=== PATIENT | female | born 1990 | race Caucasian/White ===

== ENCOUNTER 2022-01-20 10:20 | Outpatient (CLI) | payer OTHER, SELFPAY ==
--- NOTE | 2022-01-20 10:43 | ECG_ITS ---
Measurements Intervals [place] Rate: 79 P: 58 HI: 121 QRS: 73 QRSD: 81 T: 33 QT: 343 QTc: 395 Interpretive Statements SINUS RHYTHM NONSPECIFIC T-WAVE ABNORMALITY NO PREVIOUS ECG AVAILABLE FOR COMPARISON Electronically Signed On 01-20-2022 12:46:17 CDT by Susi Heller M.D.
== END 2022-01-20 10:21 | disposition home or self-care (01) ==
LOC: ANHCARD 10:27
PROVIDERS: PCP Internal Medicine Infectious Disease; Visit Provider Obstetrics & Gynecology
DX: R00.2 Palpitations (principal); R94.31 Abnormal electrocardiogram [ECG] [EKG]
CPT/HCPCS: 93005

== ENCOUNTER 2022-03-19 12:59 | Outpatient (CLI) | payer OTHER, SELFPAY ==
[2022-03-19 13:35] VITALS: BP 127/74; PULSE 97
== END 2022-03-19 13:35 | disposition home or self-care (01) ==
LOC: ANHOBOP 13:34 → ANHLDR 13:35
PROVIDERS: PCP Internal Medicine Infectious Disease; Visit Provider Obstetrics & Gynecology
DX: O42.90 Premature rupture of membranes, unspecified as to length of time between rupture and onset of labor, unspecified weeks of gestation (principal); Z3A.00 Weeks of gestation of pregnancy not specified
CPT/HCPCS: 59025; 84112; 99199

== ENCOUNTER 2022-03-26 06:03 | Inpatient (IN) | payer OTHER, SELFPAY ==
[2022-03-26] VITALS (92 sets, daily range): BP systolic 89–151; BP diastolic 40–114; PULSE 30–159; RESP 14–18; TEMP 36.2–37.1; O2SAT 78–100; BMI 30.2
[2022-03-26] MEDS: LACTATED RINGERS 1,000 ML 125 ML IV CONT ×2 (06:45→11:11)
[2022-03-26] MEDS: ceFAZolin 2 GM/D5W 50 ML 2 GM/50 ML BAG IVPB (06:46)
[2022-03-26 06:54] LABS: Basophils Percent Auto 0.2 % (0.2-1.2); Eosinophils Absolute Auto 0.1 K/mm3 (0-0.3); Eosinophils Percent Auto 0.6 % (0-4.4); Immature Granulocyte Absolute 0.09 K/mm3 (0.00-0.031); Immature Granulocyte Percent A 0.9 % (0-0.5); Lymphocytes Absolute Auto 1.28 K/mm3 (0.9-3.2); Lymphocytes Percent Auto 13.4 % (18.3-44.2); Mean Corpuscular HGB Conc 32.4 g/dl (32-36); Mean Corpuscular Hemoglobin 30.7 pg (26-34); Mean Platelet Volume 9.3 fl (7.4-10.4); Monocytes Absolute Auto 0.6 K/mm3 (0.1-0.6); Monocytes Percent Auto 6.4 % (2.6-8.5); Neutrophils Absolute Auto 7.5 K/mm3 (1.3-6.7); Neutrophils Percent Auto 78.5 % (45.5-73.1); Platelet Count Result 123 k/mm3 (150-375); Red Blood Count 3.58 M/mm3 (4.2-5.4); Red Cell Distribution Width 15.1 % (11.5-14.5); White Blood Count 9.6 K/mm3 (4.5-10.0)
[2022-03-26] MEDS: OXYTOCIN 30 UNITS/NS 500 ML 30 UNITS/500 ML BAG IV CONT (07:01)
--- NOTE | 2022-03-26 07:06 | LDADM ---
This patient, Kirstie Laird, was admitted to Labor/Delivery/Recovery 104 on 03/26/22 at 06:03. Plans for labor, pain management and were discussed with patient. Patient/family oriented to hospital policies and general routines including ID bracelet, bed and alarms, visiting hours, pain management, procedures, bathroom and other care routines, personal items, smoking policy, room service/diet and guest tray routines, security routines, and visiting hours. Patient/Family are encouraged to report perceived risks to care and to ask questions if they do not understand what they are told or what they should do. See OBIX for further documentation.
[2022-03-26 07:28] LABS: Rapid Plasma Reagin Non-Reactive (NonReactive)
--- NOTE | 2022-03-26 08:45 | WPDOBADMIT ---
Obstetrics - Admit Note Admission Note: record reviewed. Additions to the history and/or subsequent changes in the physical findings follow. 31 y/o at 39 4/7 weeks here for induction of labor. GBS pos, with PCN allergy. Feeling some contractions. AVSS NST reactive TOCO: contractions irregularly ABD soft, nontender, gravid, vertex EXT nontender Cervix 3/50/-2. AROM with clear fluid. Vertex. A: IUP at 39 4/7 weeks with favorable cervix, desiring induction of labor. GBS pos. P: Ancef. Oxytocin. Anticipate .
[2022-03-26] MEDS: LORATADINE 10 MG TABLET PO (09:02)
--- NOTE | 2022-03-26 10:44 | WPDANESEPPF ---
Anes - Initial Pre Proc Eval Procedure: Labor Epidural Date/Time: 03/26/22 10:44 Surgeon: Jonas White MD Pre Op Diagnosis: Labor pain, IUP Pre Op Diagnosis: IOL Patient Data Age: 31 Gender: F Height: 1.57 m Weight: 75 kg Last Vital Signs Temp 36.7 C 03/26/22 09:00 Pulse 74 03/26/22 10:00 Resp 16 03/26/22 07:00 BP 129/74 03/26/22 10:00 O2 Del Method Room Air 03/26/22 07:05 Allergies Allergy/AdvReac Type Severity Reaction Status Date / Time Penicillins Allergy Unknown Unknown Verified 03/26/22 07:02 Home Medications Medication Instructions Recorded Confirmed Type prenat.vits,alon,dtd-aplx-tjemg 1 tablet PO HS 03/04/22 03/04/22 History fluoxetine 10 mg capsule 10 mg PO DAILY 03/26/22 03/26/22 History Laboratory Tests 03/26/22 03/26/22 03/26/22 06:43 06:43 06:43 WBC 9.6 K/mm3 K/mm3 (4.5-10.0) RBC 3.58 M/mm3 L M/mm3 (4.2-5.4) Hgb 11.0 g/dL L g/dL (12.0-15.0) Hct 34.0 % L % (37.0-47.0) MCV 95.0 fl fl (80-100) MCH 30.7 pg pg (26-34) MCHC 32.4 g/dl g/dl (32-36) RDW 15.1 % H % (11.5-14.5) Plt Count 123 k/mm3 L k/mm3 (150-375) MPV 9.3 fl fl (7.4-10.4) Immature Gran % (Auto) 0.9 % H % (0-0.5) Neut % (Auto) 78.5 % H % (45.5-73.1) Lymph % (Auto) 13.4 % L % (18.3-44.2) [place] % (Auto) 6.4 % % (2.6-8.5) Eos % (Auto) 0.6 % % (0-4.4) Baso % (Auto) 0.2 % % (0.2-1.2) Lymph # (Auto) 1.28 K/mm3 K/mm3 (0.9-3.2) [place] # (Auto) 0.6 K/mm3 K/mm3 (0.1-0.6) Eos # (Auto) 0.1 K/mm3 K/mm3 (0-0.3) Baso # (Auto) 0.0 K/mm3 K/mm3 (0.0-0.1) Abs Immat Gran (auto) 0.09 K/mm3 H K/mm3 (0.00-0.031) Absolute Neuts (auto) 7.5 K/mm3 H K/mm3 (1.3-6.7) Absolute Nucleated RBC 0.0 K/mm3 K/mm3 (0.0-0.012) Nucleated RBC % 0.0 % % (0.0-0.2) RPR Non-reactive (NonReactive) Blood Type A Positive Antibody Screen Negative Patient hx anesthesia problems: none Family hx anesthesia problems: none Results Review: All pre-operative results and documents have been reviewed as part of the pre-operative evaluation. [facility] Family History Family History (Updated 03/04/22 @ 14:45 by Trinidad Garnica RN) Father Hypertension Grandparent Diabetes mellitus Carcinoma of colon Social History Social History Smoking status: Never smoker Second hand tobacco smoke exposure: No Alcohol intake: current Substance use: never Spiritual care concerns: No Anes - Eval Final PreProcedure Day of Procedure 03/26/22 10:44 Results Review: All pre-operative results and documents have been reviewed as part of the pre-operative evaluation. Informed Consent: The patient's anesthetic plan and its attendant risks and benefits were discussed with the patient/family/POA. Questions were solicited and answers provided to the satisfaction of the patient/family/POA.
--- NOTE | 2022-03-26 11:55 | P.PNOB_ITS ---
OB - PN: Subj Subjective Date/time seen: 03/26/22 11:[address], starting to help with pain. AVSS NST reactive TOCO: contractions every 2-5 min Cervix 4/80/-1. IUPC placed. Continue labor. OB - PN: Obj Data Labs CBC & Chem 7: 03/26/22 06:43 Labs: Laboratory Results - last 24 hr 03/26/22 03/26/22 03/26/22 06:43 06:43 06:43 WBC 9.6 RBC 3.58 L Hgb 11.0 L Hct 34.0 L MCV 95.0 MCH 30.7 MCHC 32.4 RDW 15.1 H Plt Count 123 L MPV 9.3 Immature Gran % (Auto) 0.9 H Neut % (Auto) 78.5 H Lymph % (Auto) 13.4 L [place] % (Auto) 6.4 Eos % (Auto) 0.6 Baso % (Auto) 0.2 Lymph # (Auto) 1.28 [place] # (Auto) 0.6 Eos # (Auto) 0.1 Baso # (Auto) 0.0 Abs Immat Gran (auto) 0.09 H Absolute Neuts (auto) 7.5 H Absolute Nucleated RBC 0.0 Nucleated RBC % 0.0 RPR Non-reactive Blood Type A Positive Antibody Screen Negative OB - PN A/P Time Spent With Patient Time: Total time spent is greater than 50% in coordination of care (as documented) at patient's floor/unit and/or counseling patient:
[2022-03-26] MEDS: ONDANSETRON INJ 4 MG/2 ML VIAL IV PUSH (13:46)
--- NOTE | 2022-03-26 14:48 | PM.OBPRVD ---
OB - Delivery Note Procedure Delivery date: 03/26/22 Procedure: Induction of labor with Delivery monitor: External FHT, External Uterine and Internal Uterine Route of delivery: Laceration Description: Perineal - 2nd Degree Delivery repair: vicryl (3-0) Specimen: Yes (cord blood) Quantitative Blood Loss (ml): 240 Anesthesia type: Epidural Disposition: PACU Complications: None Narrative: 31 y/o at 39 4/7 weeks gestation who presented to the hospital for induction of labor. She received Ancef for GBS colonization. Oxytocin was administered intravenously. Amniotomy was performed with return of clear fluid. She received an epidural for pain control. Her labor progressed and her cervix dilated completely. She pushed with good effort and delivered the infant's head to the perineum. A loose nuchal cord was splinted and the body delivered. The cord was reduced. The nose and mouth were bulb suctioned. After a delay, the cord was clamped and cut. The was handed off the field. Cord blood was collected. The placenta delivered spontaneously and was grossly normal in appearance. The usual 3 vessel cord was noted. A second degree midline perineal laceration was sustained. This was reapproximated using 3 0 Vicryl in the usual layered fashion. Excellent hemostasis resulted as did excellent reapproximation of the normal anatomy. Needle and instrument counts were correct. The patient was taken to recovery room in stable condition. The went to the nursery in stable condition. I was present and scrubbed for the entire delivery. Baby Date of : 03/26/22 Time of : 14:28 Weeks of gestation at delivery: 39 gender: Female Weight (pounds): 7 Weight (ounces): 7 presentation: vertex position: Left Occiput Anterior Placenta delivery description: Spontaneous and Normal Configuration Cord Vessel Description: 3 Vessels, Nuchal Cord and Delayed Cord Clamping score one minute: 8 score five minutes: 9
--- NOTE | 2022-03-26 14:50 | P.DS_ITS ---
DS: Admitting Diagnosis Discharge Date 03/27/22 Admitting Diagnosis IUP at 39 4/7 weeks Favorable cervix GBS colonization DS: Discharge Diagnosis Discharge Diagnosis (1) (normal spontaneous vaginal delivery): Code(s): O80 - Encounter for full-term uncomplicated delivery Status: Acute (2) GBS (group B Streptococcus carrier), +RV culture, currently : Code(s): O99.820 - Streptococcus B carrier state complicating Status: Acute OB - DS: Summary OB Procedures : None OB Procedures Intrapartum: Spontaneous Vag Delivery OB Procedures: : None Time Spent with Patient Time attestation: Total time spent providing and/or coordinating discharge services: DS: Data Data Completed and Pending Labs on day of discharge: Labs from last 24 hours 03/26/22 03/26/22 03/26/22 06:43 06:43 06:43 WBC 9.6 RBC 3.58 L Hgb 11.0 L Hct 34.0 L MCV 95.0 MCH 30.7 MCHC 32.4 RDW 15.1 H Plt Count 123 L MPV 9.3 Immature Gran % (Auto) 0.9 H Neut % (Auto) 78.5 H Lymph % (Auto) 13.4 L [place] % (Auto) 6.4 Eos % (Auto) 0.6 Baso % (Auto) 0.2 Lymph # (Auto) 1.28 [place] # (Auto) 0.6 Eos # (Auto) 0.1 Baso # (Auto) 0.0 Abs Immat Gran (auto) 0.09 H Absolute Neuts (auto) 7.5 H Absolute Nucleated RBC 0.0 Nucleated RBC % 0.0 RPR Non-reactive Blood Type A Positive Antibody Screen Negative Discharge Plan Discharge Attending physician on discharge: Jonas White Discharging Clinician: Jonas White Patient Disposition: Home, Self-Care Activity: pelvic rest Diet: regular Discharge Instructions: Call or return if temperature above 100.4? F, increased abdominal pain, increased vaginal bleeding or any new problems. Stand Alone Forms: General Discharge Information Follow-up/Referrals: Jonas White MD [Physician] - 6 Weeks Discharge Medications: New ibuprofen 600 mg tablet 600 mg PO Q6H PRN (Reason: cramps) Qty: 30 0RF Continued #2 Tablet 1 tablet PO HS fluoxetine 10 mg capsule 10 mg PO DAILY Date of admission: 03/26/22 06:03 Primary Care Provider: SammyMalick Admitting Provider: Jonas White Attending physician on admission: Jonas White Condition: Stable
[2022-03-26] MEDS: OXYTOCIN 30 UNITS/NS 500 ML 30 UNITS/500 ML BAG 125 UNITS IV CONT (14:57)
[2022-03-26] MEDS: IBUPROFEN 600 MG TABLET PO ×2 (15:50→23:06)
[2022-03-26] MEDS: BENZOCAINE 20% AER SPR (*SP) 56 GM CAN 1 SPRAY TOPICAL (15:51)
[2022-03-26] MEDS: WITCH HAZEL 40 PADS 1 PAD TOPICAL (15:51)
--- NOTE | 2022-03-26 16:30 | PC.NURSE ---
Pt up to bathroom. Unable to void.
[2022-03-27] VITALS: BP 121/95; PULSE 68; RESP 18; TEMP 36.5
[2022-03-27] MEDS: ACETAMINOPHEN 325 MG TABLET 650 MG PO ×2 (02:03→08:44)
[2022-03-27] MEDS: LANOLIN (LANSINOH) 7.5 GM CREAM 1 APPLIC TOPICAL (02:45)
[2022-03-27 04:04] VITALS: BP 111/65; PULSE 65; RESP 16; TEMP 37
[2022-03-27] MEDS: IBUPROFEN 600 MG TABLET PO ×2 (04:37→13:05)
[2022-03-27 05:49] LABS: Hematocrit 31.2 % (37.0-47.0); Hemoglobin 10.3 g/dL (12.0-15.0)
[2022-03-27 08:40] VITALS: BP 107/71; PULSE 68; RESP 16; TEMP 36.6; O2SAT 100
[2022-03-27] MEDS: MULTIVIT/MIN/PREN/FOL AC/IRON TABLET 1 TAB PO (08:44)
[2022-03-27] MEDS: DOCUSATE SODIUM 100 MG CAPSULE PO (08:44)
--- NOTE | 2022-03-27 11:25 | PM.OBPNVD ---
OB - PN: Subj Subjective Date/time seen: 03/27/22 11:25 Narrative: Pain OK. Would like to go home. OB - PN: Obj Data Labs CBC & Chem 7: 03/27/22 03:43 Labs: Laboratory Results - last 24 hr 03/27/22 03:43 Hgb 10.3 L Hct 31.2 L OB - PN A/P Plan Comments: A: PPD#1, doing well. P: Home to f/u 6 weeks. Exam Psych: Other: AVSS ABD soft, nontender, fundus firm EXT nontender
--- NOTE | 2022-03-27 11:37 | WPDANLDPN2 ---
Anes-Prog Note L&D Date/Time: 03/27/22 11:37 Neuro status: Neuro function grossly intact. Vital Signs: Last Vital Signs Temp 36.6 C 03/27/22 08:40 Pulse 68 03/27/22 08:40 Resp 16 03/27/22 08:40 BP 107/71 03/27/22 08:40 Pulse Ox 100 03/27/22 08:40 O2 Del Method Room Air 03/27/22 08:40 Pain score (VAS): 0 I/O: Intake & Output 03/26/22 03/27/22 03/27/22 23:59 07:59 15:59 Intake Total 500 Output Total 45 Balance 455 Patient feedback: Patient satisfied with anesthetic care.
[2022-03-27 12:50] VITALS: BP 120/68; PULSE 63; RESP 16; TEMP 36.4; O2SAT 100
[2022-03-29 10:53] VITALS: BP 130/84; PULSE 77; RESP 16; TEMP 37; O2SAT 99
== END 2022-03-27 16:11 | disposition home or self-care (01) | DRG 807 ==
LOC: ANHLDR 14:51 → ANHOB2 17:24
PROVIDERS: Admitting Provider Obstetrics & Gynecology; PCP Internal Medicine Infectious Disease; Visit Provider Obstetrics & Gynecology
DX: O99.824 Streptococcus B carrier state complicating childbirth (principal); Z37.0 Single live birth; O70.1 Second degree perineal laceration during delivery; O69.81X0 Labor and delivery complicated by cord around neck, without compression, not applicable or unspecified; Z3A.39 39 weeks gestation of pregnancy; Z88.0 Allergy status to penicillin
CPT/HCPCS: 36415; 85014; 85018; 85025; 86592; 86850; 86900; 86901; A9270; J0690; J2405; J2590; J2795; J7120

== ENCOUNTER 2024-04-25 11:08 | Outpatient (RCR) | payer OTHER, SELFPAY ==
[2024-04-25 12:04] VITALS: BP 129/73; PULSE 80
== END 2024-05-28 09:41 | disposition home or self-care (01) ==
LOC: ANHOBOP 11:08
PROVIDERS: PCP Internal Medicine Infectious Disease; Visit Provider Obstetrics & Gynecology
DX: O36.8190 Decreased fetal movements, unspecified trimester, not applicable or unspecified (principal)
CPT/HCPCS: 59025

== ENCOUNTER 2024-05-20 17:04 | Inpatient (IN) | payer OTHER, SELFPAY ==
[2024-05-20] VITALS (58 sets, daily range): BP systolic 88–151; BP diastolic 43–97; PULSE 31–94; TEMP 36.2–36.6; O2SAT 83–100; BMI 31.0
--- NOTE | 2024-05-20 19:18 | LDADM ---
This patient, Kirstie Laird, was admitted to Labor/Delivery/Recovery 105 on 05/20/24 at 17:04. Plans for labor, pain management and were discussed with patient. Patient/family oriented to hospital policies and general routines including ID bracelet, bed and alarms, visiting hours, pain management, procedures, bathroom and other care routines, personal items, smoking policy, room service/diet and guest tray routines, security routines, and visiting hours. Patient/Family are encouraged to report perceived risks to care and to ask questions if they do not understand what they are told or what they should do. See OBIX for further documentation.
[2024-05-20] MEDS: LACTATED RINGERS 1,000 ML 125 ML IV CONT (19:25)
[2024-05-20 19:32] LABS: Basophils Percent Auto 0.4 % (0.2-1.2); Eosinophils Absolute Auto 0.1 K/mm3 (0-0.3); Eosinophils Percent Auto 0.5 % (0-4.4); Hematocrit 29.6 % (37.0-47.0); Hemoglobin 9.2 g/dL (12.0-15.0); Immature Granulocyte Absolute 0.06 K/mm3 (0.00-0.031); Immature Granulocyte Percent A 0.6 % (0-0.5); Lymphocytes Absolute Auto 2.26 K/mm3 (0.9-3.2); Lymphocytes Percent Auto 21.6 % (18.3-44.2); Mean Corpuscular HGB Conc 31.1 g/dl (32-36); Mean Corpuscular Hemoglobin 23.5 pg (26-34); Mean Corpuscular Volume 75.5 fl (80-100); Mean Platelet Volume 9.4 fl (7.4-10.4); Monocytes Absolute Auto 0.6 K/mm3 (0.1-0.6); Monocytes Percent Auto 5.3 % (2.6-8.5); Neutrophils Absolute Auto 7.5 K/mm3 (1.3-6.7); Neutrophils Percent Auto 71.6 % (45.5-73.1); Nucleated Red Blood Cells Perc 0.2 % (0.0-0.2); Platelet Count Result 224 k/mm3 (150-375); Red Blood Count 3.92 M/mm3 (4.2-5.4); Red Cell Distribution Width 16.1 % (11.5-14.5); White Blood Count 10.5 K/mm3 (4.5-10.0)
[2024-05-20 20:22] LABS: HIV 1/2 Ab P24 Ag Result Negative (Negative)
--- NOTE | 2024-05-20 20:48 | WPDANESEPP ---
Anes - Eval Pre Procedure Procedure: Labor Epidural Date/Time: 05/20/24 20:48 Surgeon: Cindy Preop Diagnosis: Labor Pain Pre Op Diagnosis: Labor Patient Data Age: 33 Gender: F Height: 1.57 m Weight: 77 kg Allergies Allergy/AdvReac Type Severity Reaction Status Date / Time Penicillins Allergy Unknown Unknown Verified 04/27/24 12:45 Home Medications Medication Instructions Recorded Confirmed Type prenat.vits,alon,nde-opwo-quxis 1 tablet PO HS 03/04/22 03/04/22 History fluoxetine 10 mg capsule 40 mg PO DAILY 03/26/22 03/26/22 History ferrous sulfate 325 mg (65 mg 325 mg PO DAILY 04/27/24 04/27/24 History iron) tablet Laboratory Tests 05/20/24 19:16 WBC 10.5 H K/mm3 (4.5-10.0) RBC 3.92 L M/mm3 (4.2-5.4) Hgb 9.2 L g/dL (12.0-15.0) Hct 29.6 L % (37.0-47.0) MCV 75.5 L fl (80-100) MCH 23.5 L pg (26-34) MCHC 31.1 L g/dl (32-36) RDW 16.1 H % (11.5-14.5) Plt Count 224 D k/mm3 (150-375) MPV 9.4 fl (7.4-10.4) Immature Gran % (Auto) 0.6 H % (0-0.5) Neut % (Auto) 71.6 % (45.5-73.1) Lymph % (Auto) 21.6 % (18.3-44.2) [place] % (Auto) 5.3 % (2.6-8.5) Eos % (Auto) 0.5 % (0-4.4) Baso % (Auto) 0.4 % (0.2-1.2) Lymph # (Auto) 2.26 K/mm3 (0.9-3.2) [place] # (Auto) 0.6 K/mm3 (0.1-0.6) Eos # (Auto) 0.1 K/mm3 (0-0.3) Baso # (Auto) 0.0 K/mm3 (0.0-0.1) Abs Immat Gran (auto) 0.06 H K/mm3 (0.00-0.031) Absolute Neuts (auto) 7.5 H K/mm3 (1.3-6.7) Absolute Nucleated RBC 0.020 H K/mm3 (0.0-0.012) Nucleated RBC % 0.2 % (0.0-0.2) HIV 1&2 Ab/P24 Ag 4thGn Negative (Negative) : gestational age (MAYRA 05/28/24, ) Patient hx anesthesia problems: none Family hx anesthesia problems: none Results Review: All pre-operative results and documents have been reviewed as part of the pre-operative evaluation. [facility] Family History Family History Father Hypertension Grandparent Diabetes mellitus Carcinoma of colon Social History Social History Smoking status: Never smoker Second hand tobacco smoke exposure: No Alcohol intake: current Substance use: never Do You Feel Safe in your Home?: Yes Lack of Transportation: No Lack of Food: Never True Current Housing: I Have Housing Concerned About Future Housing: No Difficulty Paying Gas/Electric Bills: No Difficulty Paying for Meds: No Currently Unemployed: No Education: Bachelor's Degree Difficulty w/ Childcare or Family Care: No Spiritual care concerns: No Exam Day of Procedure 05/20/24 20:48 Patient weight: normal Heart: regular rate and rhythm Lungs: normal air movement Airway: Mallampati scale class II Neurological: alert and oriented
[2024-05-20] MEDS: PHENYLEPHRINE 1,000 MCG/10 ML SYRINGE 100 MCG IV PUSH (21:17)
[2024-05-20 21:34] LABS: Rapid Plasma Reagin Non-Reactive (NonReactive)
[2024-05-20] MEDS: hydrOXYzine HCL 25 MG TABLET PO (22:12)
[2024-05-21] VITALS (41 sets, daily range): BP systolic 97–134; BP diastolic 50–84; PULSE 68–97; RESP 16–18; TEMP 36.1–37.3; O2SAT 80–100
[2024-05-21] MEDS: LACTATED RINGERS 1,000 ML 125 ML IV CONT (01:20)
[2024-05-21] MEDS: OXYTOCIN 30 UNITS/NS 500 ML 30 UNITS/500 ML BAG 999 UNITS IV CONT (02:46)
--- NOTE | 2024-05-21 03:03 | WPDOBADMIT ---
Obstetrics - Admit Note Admission Note: record reviewed. Additions to the history and/or subsequent changes in the physical findings follow. 33 y/o at 39 weeks who presented with contractions. Labor diagnosed. She is now comfortable with epidural. GBS neg. AVSS NST reactive TOCO: Contractions every 2-4 min ABD soft, nontender, gravid, vertex. AROM with thinly meconium-stained fluid. EXT nontender Cervix C/+2 A: IUP at term with labor. P: Begin pushing.
--- NOTE | 2024-05-21 03:05 | PM.OBPRVD ---
OB - Vaginal Delivery Note Procedure Delivery date: 05/21/24 Delivery monitor: External FHT and External Uterine Route of delivery: Laceration Description: Perineal - 2nd Degree Delivery repair: vicryl (3-0) Specimen: Yes (cord blood) Quantitative Blood Loss (ml): 180 Anesthesia type: Epidural Disposition: PACU Complications: None Narrative: 33 y/o at 39 weeks gestation who presented to the hospital with contractions. Labor was diagnosed. She received an epidural for pain control. Her labor progressed and her cervix dilated completely. Amniotomy yielded thinly meconium-stained fluid. She pushed with good effort and delivered the 's head to the perineum. A loose nuchal cord was splinted and the body delivered. The cord was reduced and the nose and mouth were bulb suctioned. After a delay, the cord was clamped and cut. The was handed off the field. Cord blood was collected. The placenta delivered spontaneously and was grossly normal in appearance. The usual 3 vessel cord was noted. A second degree midline perineal laceration was sustained. This was reapproximated using 3 0 Vicryl in the usual layered fashion. Excellent hemostasis resulted as did excellent reapproximation of the normal anatomy. Needle and instrument counts were correct. The patient was taken to recovery room in stable condition. The infant went to the nursery in stable condition. I was present and scrubbed for the entire delivery. Baby Date of : 05/21/24 Time of : 02:43 Gestational Age by Date: 39 gender: Female Weight (pounds): 7 Weight (ounces): 9 presentation: vertex position: Left Occiput Anterior Placenta delivery description: Spontaneous and Normal Configuration Cord Vessel Description: 3 Vessels, Nuchal Cord (x1) and Delayed Cord Clamping score one minute: 7 score five minutes: 8
--- NOTE | 2024-05-21 03:07 | PM.OBDSVD ---
DS: Admitting Diagnosis Discharge Date 05/22/24 Admitting Diagnosis IUP at 39 weeks Labor DS: Discharge Diagnosis Discharge Diagnosis (1) (normal spontaneous vaginal delivery): Code(s): O80 - Encounter for full-term uncomplicated delivery Status: Acute OB - DS: Summary OB Procedures : None OB Procedures Intrapartum: Spontaneous Vag Delivery OB Procedures: : None Peripartum Data Laceration Description: Perineal - 2nd Degree Time Spent with Patient Time attestation: Total time spent providing and/or coordinating discharge services: DS: Data Data Completed and Pending Labs on day of discharge: Labs from last 24 hours 05/20/24 05/20/24 19:16 19:12 WBC 10.5 H RBC 3.92 L Hgb 9.2 L Hct 29.6 L MCV 75.5 L MCH 23.5 L MCHC 31.1 L RDW 16.1 H Plt Count 224 D MPV 9.4 Immature Gran % (Auto) 0.6 H Neut % (Auto) 71.6 Lymph % (Auto) 21.6 [place] % (Auto) 5.3 Eos % (Auto) 0.5 Baso % (Auto) 0.4 Lymph # (Auto) 2.26 [place] # (Auto) 0.6 Eos # (Auto) 0.1 Baso # (Auto) 0.0 Abs Immat Gran (auto) 0.06 H Absolute Neuts (auto) 7.5 H Absolute Nucleated RBC 0.020 H Nucleated RBC % 0.2 RPR Non-reactive HIV 1&2 Ab/P24 Ag 4thGn Negative Blood Type A Positive Antibody Screen Negative Discharge Plan Discharge Attending physician on discharge: Jonas White Discharging Clinician: Jonas White Patient Disposition: Home, Self-Care Activity: pelvic rest Diet: regular Discharge Instructions: Call or return if temperature above 100.4? F, increased abdominal pain, increased vaginal bleeding or any new problems. Stand Alone Forms: General Discharge Information Follow-up/Referrals: Jonas White MD [Physician] - 6 Weeks Discharge Medications: New ibuprofen 600 mg tablet 600 mg PO Q6H PRN (Reason: cramps) Qty: 30 0RF Continued prenat.vits,alon,zsw-iojk-hfotx Tablet 1 tablet PO HS fluoxetine 10 mg capsule 40 mg PO DAILY ferrous sulfate 325 mg (65 mg iron) Tablet 325 mg PO DAILY Date of admission: 05/20/24 17:04 Primary Care Provider: Sammy,Malick Admitting Provider: Jonas White Attending physician on admission: Jonas White Condition: Stable
[2024-05-21] MEDS: OXYTOCIN 30 UNITS/NS 500 ML 30 UNITS/500 ML BAG 125 UNITS IV CONT (03:20)
[2024-05-21] MEDS: WITCH HAZEL 40 PADS 1 PAD TOPICAL (04:59)
[2024-05-21] MEDS: BENZOCAINE 20% AER SPR (*SP) 56 GM CAN 1 SPRAY TOPICAL (04:59)
--- NOTE | 2024-05-21 05:30 | OBPPTRN ---
0523-Patient transferred to post room #284 via wheelchair. Baby in crib and Support person present. Oriented to unit, room, information board, rooming in, admission packet and security measures. Patient verbalizes understanding.
[2024-05-21] MEDS: MULTIVIT/MIN/PREN/FOL AC/IRON TABLET 1 TAB PO (08:13)
[2024-05-21] MEDS: IBUPROFEN 600 MG TABLET PO ×2 (08:13→16:33)
[2024-05-21] MEDS: DOCUSATE SODIUM 100 MG CAPSULE PO (08:13)
[2024-05-21] MEDS: FLUoxetine HCL 10 MG CAPSULE 40 MG PO (08:14)
[2024-05-21] MEDS: LANOLIN (LANSINOH) 7.5 GM CREAM 1 APPLIC TOPICAL (08:15)
[2024-05-21] MEDS: POLYSACCHARIDE IRON COMPLEX 150 MG CAPSULE PO ×2 (09:55→16:33)
[2024-05-22] MEDS: IBUPROFEN 600 MG TABLET PO ×2 (00:50→07:56)
[2024-05-22 05:18] LABS: Hematocrit 25.8 % (37.0-47.0); Hemoglobin 8.1 g/dL (12.0-15.0)
[2024-05-22] MEDS: POLYSACCHARIDE IRON COMPLEX 150 MG CAPSULE PO (07:56)
[2024-05-22] MEDS: DOCUSATE SODIUM 100 MG CAPSULE PO (07:56)
[2024-05-22] MEDS: FLUoxetine HCL 10 MG CAPSULE 40 MG PO (07:57)
[2024-05-22 09:05] VITALS: BP 130/67; PULSE 76; RESP 16; TEMP 36.6; O2SAT 100
--- NOTE | 2024-05-22 10:10 | PM.OBPNVD ---
OB - PN: Subj Subjective Date/time seen: 05/22/24 10:10 Narrative: Pain OK. Would like to go home. Declines MMR - says she has had four of them and they never generate immunity. Moreover, she does not plan any more pregnancies. OB - PN: Obj Data Labs 05/22/24 05:01 Labs: Laboratory Results - last 24 hr 05/22/24 05:01 Hgb 8.1 L Hct 25.8 L OB - PN A/P Plan Comments: A: PPD#1, doing well. P: Home to f/u 6 weeks. Exam Psych: Other: AVSS ABD soft, nontender, fundus firm EXT nontender
[2024-05-23 10:20] VITALS: BP 125/82; PULSE 78; RESP 18; TEMP 36.6; O2SAT 100
== END 2024-05-22 12:00 | disposition home or self-care (01) | DRG 807 ==
LOC: ANHLDR 05-21 03:08 → ANHOB2 05-21 05:40
PROVIDERS: Admitting Provider Obstetrics & Gynecology; PCP Internal Medicine Infectious Disease; Visit Provider Obstetrics & Gynecology
DX: O69.81X0 Labor and delivery complicated by cord around neck, without compression, not applicable or unspecified (principal); Z37.0 Single live birth; Z3A.39 39 weeks gestation of pregnancy; O70.1 Second degree perineal laceration during delivery
CPT/HCPCS: 36415; 85014; 85018; 85025; 86592; 86703; 86850; 86900; 86901; A9270; G0432; J2371; J2590; J2795; J7120